=== PATIENT | female | born 1960 | race Caucasian/White ===

== ENCOUNTER 2016-12-14 10:10 | Emergency (ER) | payer MEDICAID ==
[~2016-12-14] VITALS: Ht 170.2 cm; Wt 71.8 kg
[~2016-12-14 10:10] MED LIST: AMIT150T PO; CETI10TA24 PO; PERI COLACE PO; TRAM150C25 PO
[2016-12-14] MEDS ORDERED: GABA300C10 PO (10:29)
[2016-12-14] MEDS ORDERED: AMIT10TA PO (10:29)
[2016-12-14] MEDS ORDERED: TRAM50TA2 PO (10:29)
[2016-12-14] MEDS ORDERED: LIDOCAINE 1%, 20ML SQ ONE (14:00)
[2016-12-14] MEDS ORDERED: LIDOCAINE 1%, 20ML ONE (14:16)
[2016-12-14 14:32] VITALS: BP 140/93
[2016-12-14] MEDS ORDERED: BACITRACIN ZINC OINT 500U/GM, 0.9 GM ONE (14:47)
== END 2016-12-14 15:07 | disposition home or self-care (01) ==
LOC: MERGE 10:10 → EDBD 10:10 → ED 14:57
DX: S01.01XA Laceration without foreign body of scalp, initial encounter (principal); S16.1XXA Strain of muscle, fascia and tendon at neck level, initial encounter; S52.124A Nondisplaced fracture of head of right radius, initial encounter for closed fracture; W01.0XXA Fall on same level from slipping, tripping and stumbling without subsequent striking against object, initial encounter; Y93.89 Activity, other specified; Y92.89 Other specified places as the place of occurrence of the external cause; Y99.8 Other external cause status
CPT/HCPCS: 12001; 29105; 70450; 72125

== ENCOUNTER 2016-12-31 10:26 | Emergency (ER) | payer MEDICAID ==
[~2016-12-31] VITALS: Ht 160 cm; Wt 60.0 kg
[~2016-12-31 10:26] MED LIST changes: +AMIT10TA PO; +GABA300C10 PO; +TRAM50TA2 PO
[2016-12-31] MEDS ORDERED: LORazepam 1MG TABLET ONE (11:24)
[2016-12-31] MEDS ORDERED: ONDANSETRON ODT 4 MG ONE (11:26)
[2016-12-31] MEDS ORDERED: ONDANSETRON ODT 4 MG PO ONE (11:30)
[2016-12-31] MEDS ORDERED: LORazepam 1MG TABLET PO ONE (11:30)
[2016-12-31 12:02] LABS: BLOOD UREA NITROGEN 8 mg/dL (7-18)
[2016-12-31 13:13] VITALS: BP 149/94
== END 2016-12-31 13:15 | disposition home or self-care (01) ==
LOC: ED 13:00
DX: Z00.00 Encounter for general adult medical examination without abnormal findings (principal); F41.1 Generalized anxiety disorder; E11.9 Type 2 diabetes mellitus without complications
CPT/HCPCS: 36415; 80048; 82040; 84443; 85025; 99284; Q0162

== ENCOUNTER 2017-03-29 13:23 | Observation (INO) | payer MEDICAID ==
[~2017-03-29] VITALS: Ht 162.6 cm; Wt 65.0 kg
[2017-03-29] MEDS ORDERED: ONDANSETRON 2MG/ML, 2ML IVPush ONE (14:00)
[2017-03-29] MEDS ORDERED: PLEASE ENTER HEIGHT AND WEIGHT MC SCH (14:00)
[2017-03-29] MEDS ORDERED: MORPHINE SULFATE 4 MG/ML, 1ML IVPush PRN (14:00)
[2017-03-29] MEDS ORDERED: MORPHINE SULFATE 4 MG/ML, 1ML ONE (14:20)
[2017-03-29] MEDS ORDERED: ONDANSETRON 2MG/ML, 2ML ONE (14:20)
[2017-03-29] MEDS ORDERED: AMIT50TA PO (16:55)
[2017-03-29] MEDS ORDERED: TEMA30CA PO (16:55)
[2017-03-29 17:00] LABS: HEMATOCRIT 37.4 % (34.6-47.8); HEMOGLOBIN 12.4 g/dL (11.7-16.4); WHITE BLOOD COUNT 5.2 x10^3/uL (3.4-10)
[2017-03-29 17:08] LABS: BLOOD UREA NITROGEN 4 mg/dL (7-18)
[2017-03-29] MEDS ORDERED: GABA600T2 PO (17:10)
[2017-03-29] MEDS ORDERED: hydrALAzine 20 MG/ML, 1ML IVPush PRN (17:30)
[2017-03-29] MEDS ORDERED: ONDANSETRON ODT 4 MG PO PRN (17:30)
[2017-03-29] MEDS ORDERED: ACETAMINOPHEN 325 MG TABLET PO PRN (17:30)
[2017-03-29] MEDS ORDERED: TRAZODONE 50MG TABLET PO PRN (17:30)
[2017-03-29 18:50] VITALS: BP 108/49
[2017-03-29] MEDS ORDERED: GADOBUTROL 7.5 MMOL/7.5 ML PFS ONE (19:22)
[2017-03-29] MEDS: SODIUM CHLORIDE 0.9% 1,000 ML IV SCH (19:44)
[2017-03-29] MEDS ORDERED: morphine SULFATE 10 MG/ML, 1ML IVPush ONE (20:30)
[2017-03-29] MEDS: LACTULOSE 10 GM/15 ML UDC PO SCH (22:12)
[2017-03-29] MEDS: FAMOTIDINE 20 MG TABLET PO SCH (22:12)
[2017-03-30] MEDS ORDERED: GABAPENTIN 300 MG CAPSULE PO SCH
[2017-03-30] MEDS ORDERED: TEMAZEPAM 30 MG CAPSULE PO PRN
[2017-03-30] MEDS: AMITRIPTYLINE 50 MG TABLET PO SCH ×2 (00:18)
[2017-03-30] MEDS ORDERED: DIPHENHYDRAMINE 50 MG/ML, 1ML ONE (00:26)
[2017-03-30] MEDS ORDERED: AMITRIPTYLINE 50 MG TABLET PO SCH ×2 (00:30→21:00)
[2017-03-30] MEDS ORDERED: DIPHENHYDRAMINE 50 MG/ML, 1ML IVPush PRN (00:30)
[2017-03-30 01:58] VITALS: BP_SYST 104; BP_SYST 117; BP_SYST 96; BP_DIAS 64; BP_DIAS 69; BP_DIAS 71
[2017-03-30 05:03] LABS: BLOOD UREA NITROGEN 5 mg/dL (7-18)
[2017-03-30 05:04] LABS: HEMATOCRIT 33.3 % (34.6-47.8); HEMOGLOBIN 11.1 g/dL (11.7-16.4); WHITE BLOOD COUNT 3.9 x10^3/uL (3.4-10)
[2017-03-30] MEDS: SODIUM CHLORIDE 0.9% 1,000 ML IV SCH (08:26)
[2017-03-30] MEDS: FAMOTIDINE 20 MG TABLET PO SCH (08:26)
[2017-03-30] MEDS: LACTULOSE 10 GM/15 ML UDC PO SCH (08:26)
[2017-03-30 08:45] VITALS: BP_SYST 110; BP_SYST 128; BP_SYST 129; BP_DIAS 72; BP_DIAS 85
[2017-03-30] MEDS ORDERED: SENNA/DOCUSATE TABLET PO SCH (09:00)
[2017-03-30] MEDS ORDERED: POTASSIUM CHLORIDE 20 MEQ TAB.ER.PRT PO ONE (10:30)
[2017-03-30 15:43] VITALS: BP 137/92
== END 2017-03-30 19:00 | disposition home or self-care (01) ==
LOC: ED 16:33 → EDIP 16:34 → ED 17:41 → 3NE 18:10
PROVIDERS: ADMIT Internal Medicine; ATTEND Internal Medicine
DX: F07.81 Postconcussional syndrome (principal); E11.9 Type 2 diabetes mellitus without complications; F41.1 Generalized anxiety disorder; I10 Essential (primary) hypertension
CPT/HCPCS: 36415; 70450; 70553; 72125; 80048; 82140; 84443; 85025; 96361; 96374; 96375; 96376; 97116; 97163; 97166; 97530; 99285; A9585; G0378; J1200; J2270; J2405; J7030

== ENCOUNTER 2017-06-06 23:46 | Emergency (ER) | payer MEDICAID ==
[~2017-06-06] VITALS: Ht 165.1 cm; Wt 56.5 kg
[~2017-06-06 23:46] MED LIST changes: +AMIT50TA PO; +GABA600T2 PO; +TEMA30CA PO
[2017-06-06 23:48] VITALS: BP 126/88
== END 2017-06-07 00:47 | disposition home or self-care (01) ==
LOC: ED 23:59
DX: M25.562 Pain in left knee (principal); M25.561 Pain in right knee; M79.662 Pain in left lower leg; M79.661 Pain in right lower leg; I10 Essential (primary) hypertension; E11.9 Type 2 diabetes mellitus without complications
CPT/HCPCS: 99282

== ENCOUNTER 2017-06-15 04:07 | Inpatient (IN) | payer MEDICAID ==
[~2017-06-15] VITALS: Ht 160 cm; Wt 67.6 kg
[2017-06-15 04:53] LABS: DAU SCREEN DISCLAIMER
[2017-06-15] MEDS ORDERED: SODIUM CHLORIDE 0.9% 1,000ML IVBOLUS ONE (05:00)
[2017-06-15] MEDS ORDERED: SODIUM CHLORIDE FLUSH 10ML SYR IVF ONE (05:00)
[2017-06-15 05:33] LABS: HEMATOCRIT 30.4 % (34.6-47.8); HEMOGLOBIN 10.4 g/dL (11.7-16.4); WHITE BLOOD COUNT 3.3 x10^3/uL (3.4-10)
[2017-06-15 05:38] LABS: ASPARTATE AMINO TRANSFERASE 26 U/L (15-37); BLOOD UREA NITROGEN 6 mg/dL (7-18)
[2017-06-15 05:46] LABS: ACETAMINOPHEN < 2 mcg/mL (10-30)
[2017-06-15] MEDS ORDERED: ONDANSETRON 2MG/ML, 2ML IVPush PRN (07:00)
[2017-06-15] MEDS ORDERED: POTASSIUM CHLORIDE 20 MEQ TAB.ER.PRT PO ONE (07:00)
[2017-06-15] MEDS ORDERED: SODIUM CHLORIDE FLUSH 10ML SYR IVF PRN (07:00)
[2017-06-15] MEDS ORDERED: ONDANSETRON ODT 4 MG PO PRN (07:00)
[2017-06-15 07:57] LABS: FERRITIN 78.9 ng/mL (8-252)
[2017-06-15] MEDS: MULTIVITAMIN 1 TABLET PO SCH (09:00)
[2017-06-15] MEDS: THIAMINE 100MG TABLET PO SCH (09:00)
[2017-06-15 14:00] VITALS: BP 130/79
[2017-06-15 21:05] VITALS: BP 131/88
[2017-06-16 03:20] VITALS: BP 102/67
[2017-06-16 04:51] LABS: HEMATOCRIT 29.5 % (34.6-47.8); HEMOGLOBIN 9.7 g/dL (11.7-16.4); WHITE BLOOD COUNT 2.9 x10^3/uL (3.4-10)
[2017-06-16 05:19] LABS: BLOOD UREA NITROGEN 5 mg/dL (7-18)
[2017-06-16 05:20] LABS: ASPARTATE AMINO TRANSFERASE 19 U/L (15-37)
[2017-06-16 08:23] VITALS: BP 114/73
[2017-06-16] MEDS: THIAMINE 100MG TABLET PO SCH (09:23)
[2017-06-16] MEDS: ACETAMINOPHEN 325 MG TABLET PO PRN ×2 (09:23→21:29)
[2017-06-16] MEDS: MULTIVITAMIN 1 TABLET PO SCH (09:23)
[2017-06-16] MEDS ORDERED: CYANOCOBALAMIN 1,000 MCG/ML, 1ML IM ONE (10:30)
[2017-06-16 14:36] VITALS: BP 109/69
[2017-06-16 20:10] VITALS: BP 116/74
[2017-06-17] VITALS (11 sets, daily range): BP systolic 114–147; BP diastolic 57–92
[2017-06-17] MEDS: MULTIVITAMIN 1 TABLET PO SCH (08:08)
[2017-06-17] MEDS: ACETAMINOPHEN 325 MG TABLET PO PRN ×3 (08:08→19:35)
[2017-06-17] MEDS: THIAMINE 100MG TABLET PO SCH (08:08)
[2017-06-18 03:40] VITALS: BP 106/68
[2017-06-18 07:20] VITALS: BP 103/68
[2017-06-18] MEDS: MULTIVITAMIN 1 TABLET PO SCH (08:23)
[2017-06-18] MEDS: THIAMINE 100MG TABLET PO SCH (08:23)
== END 2017-06-18 10:34 | disposition home or self-care (01) | DRG 948 ==
LOC: ED 04:13 → EDIP 06:39 → 4WST 08:13
PROVIDERS: ADMIT Hospitalist; ATTEND Hospitalist
PROC: 0HQ0XZZ Repair Scalp Skin, External Approach (ICD-10-PCS; principal; 2017-06-15)
DX: R41.82 Altered mental status, unspecified (principal); D64.9 Anemia, unspecified; D72.819 Decreased white blood cell count, unspecified; E11.9 Type 2 diabetes mellitus without complications; E87.6 Hypokalemia; W18.30XA Fall on same level, unspecified, initial encounter; F51.04 Psychophysiologic insomnia; G89.4 Chronic pain syndrome; I10 Essential (primary) hypertension; S01.01XA Laceration without foreign body of scalp, initial encounter; Z79.899 Other long term (current) drug therapy; F32.9 Major depressive disorder, single episode, unspecified; F41.9 Anxiety disorder, unspecified; Z88.8 Allergy status to other drugs, medicaments and biological substances; T42.4X5A Adverse effect of benzodiazepines, initial encounter; Y92.89 Other specified places as the place of occurrence of the external cause; Z59.0 Homelessness
CPT/HCPCS: 36415; 70450; 80053; 80307; 80329; 81003; 82140; 82607; 82728; 82746; 83540; 83550; 84443; 85025; 99285; G0479; G0480; J7030

== ENCOUNTER 2017-07-03 00:25 | Emergency (ER) | payer MEDICAID ==
[~2017-07-03] VITALS: Ht 162.6 cm; Wt 57.3 kg
[2017-07-03 01:18] LABS: MEAN CORPUSCULAR HEMOGLOBIN 29.1 pg (27.0-34.8); MEAN CORPUSCULAR HGB CONC 32.8 g/dL (32.4-35.8); MEAN CORPUSCULAR VOLUME 88.7 fL (80-100); MEAN PLATELET VOLUME 7.6 fL (7.4-10.4); PLATELET COUNT 384 x10^3/uL (130-400); RED BLOOD COUNT 3.41 x10^6/uL (3.82-5.3); RED CELL DISTRIBUTION WIDTH 14.2 % (9.6-15.2)
[2017-07-03 01:29] LABS: ALBUMIN 3.1 g/dL (3.4-5.0); ANION GAP 5 mmol/L (5-15); CALCIUM 8.9 mg/dL (8.5-10.1); CHLORIDE 106 mmol/L (98-107); CREATININE 0.58 mg/dL (0.55-1.02)
[2017-07-03 01:34] LABS: MD YES
[2017-07-03 01:37] LABS: BAND#(MANUAL) 0.37 x10^3/uL; BANDS%(MANUAL) 6 % (0-7); BASOS#(MANUAL) 0.06 x10^3/uL (0-0.1); BASOS% (MANUAL) 1 % (0-1); EOS#(MANUAL) 0.24 x10^3/uL (0.0-0.4); EOS% (MANUAL) 4 % (1-7); LYMPH#(MANUAL) 1.71 x10^3/uL (1-3.4); LYMPHS% (MANUAL) 28 % (22-44); MONOS#(MANUAL) 0.31 x10^3/uL (0.3-2.7); MONOS% (MANUAL) 5 % (2-9); SEG#(MANUAL) 3.42 x10^3/uL (1.8-6.8); SEGS% (MANUAL) 56 % (42-75)
[2017-07-03 01:38] LABS: <PLATELET ESTIMATE> ADEQUATE; <PLT MORPHOLOGY> NORMAL PLT MORPH; ANISOCYTOSIS 1+
[2017-07-03 01:54] VITALS: BP 115/74
== END 2017-07-03 02:14 | disposition home or self-care (01) ==
LOC: ED 02:00
DX: R42 Dizziness and giddiness (principal); E11.9 Type 2 diabetes mellitus without complications; F41.9 Anxiety disorder, unspecified; M19.90 Unspecified osteoarthritis, unspecified site
CPT/HCPCS: 36415; 80048; 82040; 85025; 93005; 99285

== ENCOUNTER 2018-09-04 11:22 | Emergency (ER) | payer MEDICAID ==
[~2018-09-04] VITALS: Ht 162.6 cm; Wt 50.0 kg
[~2018-09-04 11:22] MED LIST changes: -GABA600T2 PO; +GABA600T7 PO
[2018-09-04 12:03] VITALS: BP 110/75
--- NOTE | 2018-09-04 12:39 | NUR ---
TO THE BS AT THIS TIME
--- NOTE | 2018-09-04 13:06 | NUR ---
PT DENIES SI AT THIS TIME TO THE ERP NO SI OR SA PER ERP
[2018-09-04] MEDS ORDERED: DIPH,PERTUSS(ACELL),TET VAC/PF 0.5 ML IM-VACC ONE ×2 (13:10→13:30)
[2018-09-04 13:58] LABS: BASOPHILS # (AUTO) 0.05 x10^3/uL (0-0.1); BASOPHILS % (AUTO) 1 % (0-1); EOSINOPHILS # (AUTO) 0.17 x10^3/uL (0-0.4); EOSINOPHILS % (AUTO) 2 % (1-7); LYMPHOCYTES # (AUTO) 0.69 x10^3/uL (1-3.4); LYMPHOCYTES % (AUTO) 9 % (22-44); MD NO; MEAN CORPUSCULAR HEMOGLOBIN 29.7 pg (27.0-34.8); MEAN CORPUSCULAR HGB CONC 33.5 g/dL (32.4-35.8); MEAN CORPUSCULAR VOLUME 88.6 fL (80-100); MEAN PLATELET VOLUME 7.9 fL (7.4-10.4); MONOCYTES # (AUTO) 0.28 x10^3/uL (0.2-0.8); MONOCYTES % (AUTO) 4 % (2-9); NEUTROPHILS # (AUTO) 6.23 x10^3/uL (1.8-6.8); NEUTROPHILS % (AUTO) 84 % (42-75); PLATELET COUNT 266 x10^3/uL (130-400); RED BLOOD COUNT 3.99 x10^6/uL (3.82-5.3); RED CELL DISTRIBUTION WIDTH 14.8 % (9.6-15.2)
[2018-09-04 14:10] LABS: ALBUMIN 3.7 g/dL (3.4-5.0); ANION GAP 6 mmol/L (5-15); CALCIUM 8.5 mg/dL (8.5-10.1); CHLORIDE 112 mmol/L (98-107)
[2018-09-04] MEDS ORDERED: BACITRACIN ZINC OINT 500U/GM, 0.9 GM ONE (14:10)
[2018-09-04 14:13] LABS: CREATININE 0.85 mg/dL (0.55-1.02)
[2018-09-04 14:14] LABS: SALICYLATE LEVEL < 1.7 mg/dL (2.8-20.0)
[2018-09-04 14:15] LABS: ACETAMINOPHEN < 2 mcg/mL (10-30)
== END 2018-09-04 14:30 | disposition home or self-care (01) ==
LOC: ED 13:37
DX: S00.31XA Abrasion of nose, initial encounter (principal); S00.511A Abrasion of lip, initial encounter; F33.0 Major depressive disorder, recurrent, mild; E11.9 Type 2 diabetes mellitus without complications; F41.1 Generalized anxiety disorder; B86 Scabies; W01.0XXA Fall on same level from slipping, tripping and stumbling without subsequent striking against object, initial encounter; Y93.89 Activity, other specified; Y92.89 Other specified places as the place of occurrence of the external cause; Y99.8 Other external cause status
CPT/HCPCS: 36415; 80048; 80307; 80329; 82040; 85025; 90471; 90715; 99283; G0480

== ENCOUNTER 2018-09-11 12:17 | Observation (INO) | payer MEDICAID ==
[~2018-09-11] VITALS: Ht 160 cm; Wt 54.6 kg
[2018-09-11] MEDS ORDERED: ACETAMINOPHEN 325 MG TABLET PO ONE (13:30)
[2018-09-11 13:57] LABS: BASOPHILS % (AUTO) 0 % (0-1); EOSINOPHILS % (AUTO) 2 % (1-7); LYMPHOCYTES # (AUTO) 0.43 x10^3/uL (1-3.4); LYMPHOCYTES % (AUTO) 5 % (22-44); MD NO; MEAN CORPUSCULAR VOLUME 88.2 fL (80-100); MEAN PLATELET VOLUME 8.5 fL (7.4-10.4); MONOCYTES # (AUTO) 0.38 x10^3/uL (0.2-0.8); MONOCYTES % (AUTO) 4 % (2-9); NEUTROPHILS # (AUTO) 7.94 x10^3/uL (1.8-6.8); NEUTROPHILS % (AUTO) 89 % (42-75); PLATELET COUNT 246 x10^3/uL (130-400); RED BLOOD COUNT 4.15 x10^6/uL (3.82-5.3); RED CELL DISTRIBUTION WIDTH 15.3 % (9.6-15.2)
[2018-09-11 14:08] LABS: CHLORIDE 103 mmol/L (98-107)
[2018-09-11 14:19] LABS: ALANINE AMINOTRANSFERASE 34 U/L (12-78); ALBUMIN 3.9 g/dL (3.4-5.0); ALKALINE PHOSPHATASE 89 U/L (45-117); ANION GAP 5 mmol/L (5-15); BILIRUBIN,TOTAL 0.8 mg/dL (0.2-1.0); CALCIUM 9.1 mg/dL (8.5-10.1); CREATININE 0.65 mg/dL (0.55-1.02); TOTAL PROTEIN 7.8 g/dL (6.4-8.2)
--- NOTE | 2018-09-11 16:10 | NUR ---
chargeback analyst: pt to ed room 29 from lobby in nad at this time
--- NOTE | 2018-09-11 16:25 | NUR ---
CM RAYO AT BEDSIDE
--- NOTE | 2018-09-11 16:39 | NUR ---
PT PRESENTS TO ED WITH C/O NECK PAIN AND RIGHT ELBOW PAIN X 1 WEEK SINCE FALL. PT ALSO NOTES N/V STARTING 4 DAYS AGO. PT INSTRUCTED TO PROVIDE CLEAN CATCH UA, PT STATES SHE HAS NO URGE TO VOID, REFUSES TO ATTEMPT AT THIS TIME. PT IS A&O, RESPS EVEN AND UNLABORED, BP AND SPO2 MONITORS IN PLACE .AWAITING CT, UA AND DISPO.
[2018-09-11] MEDS ORDERED: KETOROLAC 30 MG/1 ML ONE (16:46)
[2018-09-11] MEDS ORDERED: ONDANSETRON ODT 4 MG ONE (16:46)
[2018-09-11] MEDS ORDERED: ACETAMINOPHEN 325 MG TABLET ONE (16:46)
--- NOTE | 2018-09-11 16:55 | NUR ---
PT MEDICATED PER EMAR, TOLERATED WELL. PT GIVEN SODA WITH EDMD'S OK. EDWY GIRMA NOTIFIED PT IS REFUSING TO VOID AT THIS TIME. PT TO CT.
[2018-09-11] MEDS ORDERED: KETOROLAC 30 MG/1 ML IM ONE (17:00)
[2018-09-11] MEDS ORDERED: ONDANSETRON ODT 4 MG PO ONE (17:00)
--- NOTE | 2018-09-11 17:18 | NUR ---
PT BACK FROM CT, PT A&O, RESPS EVEN AND UNLABORED. PT STILL REFUSING TO ATTEMPT TO VOID AT THIS TIME. ALL MONITORS IN PLACE, PT SINUS TACH RATE 110'S WITH NO ECTOPY. CALL LIGHT IN REACH.
--- NOTE | 2018-09-11 17:30 | NUR ---
CM RAYO NOTIFIED PT STILL REFUSING TO PROVIDE UA, NOTIFIED PT IS TACHCARDIC AT RATE 110'S.
--- NOTE | 2018-09-11 18:35 | NUR ---
report given to lunch LEFTY Mccann.
--- NOTE | 2018-09-11 19:06 | NUR ---
FLOAT RN COVERING MEAL BREAK. ATTEMPT TO DISCHARGE PT. PT STATES SHE'S TOO DIZZY AND FEELS LIKE SHE IS GOING TO FALL. ATTEMPT AMBULATION WITH SBA, PT UNSTEADY ON FEET. PT DENIES DRUG OR ALCOHOL USE. PT QUESTIONED ON REASON WHY SO MANY RECENT FALLS, PT UNABLE TO ANSWER QUESTION. ERP NOTIFIED, REQUEST TO BREATHALYZE.
--- NOTE | 2018-09-11 19:15 | NUR ---
REPORT TAKEN FROM LEFTY SCHULZ.
--- NOTE | 2018-09-11 19:30 | NUR ---
late entry for 1930: CM aware pt still has not produced urine sample, MD thomas'yue RN to dc pt without urine sample.
--- NOTE | 2018-09-11 20:50 | NUR ---
this RN discussed pt's unsteady gait with CM Espinal, breathalyzer ordered. pt was unable to provide breath strong enough to provide any reading on breathalyzer. CM Espinal notified. instructed RN to provide pt with cab voucher to [facility]. This RN attempted to ambulate pt, pt was very unsteady and is not able to ambulate safely without assistance, pt states "I'm so dizzy." CM Espinal notified, propellant charge loader notified. pt unable to use walker d/t fractured rt arm, cane does not provide adequate support to pt. admit orders received as pt is not safe for discharge. pt is in bed, monitors in place. hospitalist at bedside to admit pt.
[2018-09-11] MEDS ORDERED: SODIUM CHLORIDE FLUSH 10ML SYR IVF PRN (21:00)
--- NOTE | 2018-09-11 21:00 | NUR ---
pt provided with 3rd sprite, pt tolerating PO fluids with no n/v.
[2018-09-11] MEDS ORDERED: COMPAZINE (21:03)
[2018-09-11] MEDS ORDERED: TRAM50TA2 PO (21:03)
[2018-09-11] MEDS ORDERED: AMIT100T PO (21:03)
--- NOTE | 2018-09-11 21:14 | NUR ---
This RN informed hospitalist Leslie SALDAÑA that pt has not provided urine sample during this ED visit, and has been tachcardic rate 90s-110s. IVF requested. awaiting orders at this time.
--- NOTE | 2018-09-11 21:25 | NUR ---
report given to receiving LEFTY Singer. Pt awaiting transport to room [facility] at this time. Addendum: 09/11/18 at 2128 by EMILY report given to receiving LEFTY Singer. receiving RN notified pt has not voided and urine sample is still needed. Pt awaiting transport to room 348 at this time.
[2018-09-11 21:51] VITALS: BP 110/73
[2018-09-11] MEDS ORDERED: METOCLOPRAMIDE 5 MG/ML, 2ML IVPush PRN (22:00)
[2018-09-11] MEDS ORDERED: hydrALAzine 20 MG/ML, 1ML IVPush PRN (22:00)
[2018-09-11 23:48] VITALS: BP 102/67
[2018-09-12] MEDS ORDERED: AMITRIPTYLINE 50 MG TABLET ONE ×2 (00:52→20:59)
[2018-09-12] MEDS ORDERED: AMITRIPTYLINE 100 MG TABLET PO ONE (01:00)
[2018-09-12 01:22] VITALS: BP 111/73
[2018-09-12 05:48] LABS: ALANINE AMINOTRANSFERASE 25 U/L (12-78); ALBUMIN 2.9 g/dL (3.4-5.0); ANION GAP 3 mmol/L (5-15); CALCIUM 8.1 mg/dL (8.5-10.1); CHLORIDE 104 mmol/L (98-107); CREATININE 0.66 mg/dL (0.55-1.02)
[2018-09-12 05:50] LABS: ALKALINE PHOSPHATASE 68 U/L (45-117); BILIRUBIN,TOTAL 0.9 mg/dL (0.2-1.0)
[2018-09-12 06:05] LABS: MEAN CORPUSCULAR HEMOGLOBIN 29.2 pg (27.0-34.8); MEAN CORPUSCULAR HGB CONC 33.4 g/dL (32.4-35.8); MEAN CORPUSCULAR VOLUME 87.5 fL (80-100); MEAN PLATELET VOLUME 8.4 fL (7.4-10.4); PLATELET COUNT 190 x10^3/uL (130-400); RED BLOOD COUNT 3.44 x10^6/uL (3.82-5.3); RED CELL DISTRIBUTION WIDTH 15.2 % (9.6-15.2)
[2018-09-12 06:52] VITALS: BP 114/78
[2018-09-12 07:48] LABS: BASOPHILS # (AUTO) 0.01 x10^3/uL (0-0.1); BASOPHILS % (AUTO) 0 % (0-1); EOSINOPHILS # (AUTO) 0.34 x10^3/uL (0-0.4); EOSINOPHILS % (AUTO) 10 % (1-7); LYMPHOCYTES # (AUTO) 0.41 x10^3/uL (1-3.4); LYMPHOCYTES % (AUTO) 12 % (22-44); MD SCAN; MONOCYTES # (AUTO) 0.32 x10^3/uL (0.2-0.8); MONOCYTES % (AUTO) 9 % (2-9); NEUTROPHILS # (AUTO) 2.31 x10^3/uL (1.8-6.8); NEUTROPHILS % (AUTO) 68 % (42-75)
[2018-09-12] MEDS: ENOXAPARIN 40 MG/0.4 ML SQ SCH (10:57)
[2018-09-12] MEDS: POLYETHYLENE GLYCOL 17 GM PACKET PO PRN (11:00)
[2018-09-12] MEDS ORDERED: PERMETHRIN CRM 5%, 60GM TP ONE (11:00)
[2018-09-12 11:04] LABS: MICROSCOPIC NOT IND
[2018-09-12 11:07] LABS: CULTURE INDICATED? NO
[2018-09-12 11:19] LABS: AMPHETAMINE SCREEN, URINE Negative (Negative); BARBITURATE SCREEN, URINE Negative (Negative); BENZODIAZEPINE SCREEN, URINE Negative (Negative); CANNABINOID SCREEN, URINE Negative (Negative); COCAINE SCREEN, URINE Negative (Negative); METHADONE SCREEN, URINE Negative (Negative); OPIATE SCREEN, URINE Negative (Negative)
[2018-09-12 12:43] VITALS: BP 118/78
[2018-09-12 19:38] VITALS: BP 101/66
[2018-09-12 19:48] VITALS: BP_SYST 108; BP_SYST 113; BP_DIAS 66; BP_DIAS 72
[2018-09-12] MEDS: AMITRIPTYLINE 100 MG TABLET PO SCH (21:00)
[2018-09-12] MEDS ORDERED: DIPHENHYDRAMINE 25 MG CAPSULE PO ONE (21:00)
[2018-09-13] VITALS (21 sets, daily range): BP systolic 99–149; BP diastolic 50–88
[2018-09-13 05:27] LABS: BASOPHILS # (AUTO) 0.02 x10^3/uL (0-0.1); BASOPHILS % (AUTO) 1 % (0-1); EOSINOPHILS # (AUTO) 0.38 x10^3/uL (0-0.4); EOSINOPHILS % (AUTO) 10 % (1-7); LYMPHOCYTES # (AUTO) 0.89 x10^3/uL (1-3.4); LYMPHOCYTES % (AUTO) 23 % (22-44); MD NO; MEAN CORPUSCULAR HEMOGLOBIN 28.9 pg (27.0-34.8); MEAN CORPUSCULAR HGB CONC 32.8 g/dL (32.4-35.8); MEAN CORPUSCULAR VOLUME 88.1 fL (80-100); MEAN PLATELET VOLUME 8.2 fL (7.4-10.4); MONOCYTES # (AUTO) 0.62 x10^3/uL (0.2-0.8); MONOCYTES % (AUTO) 16 % (2-9); NEUTROPHILS # (AUTO) 1.93 x10^3/uL (1.8-6.8); NEUTROPHILS % (AUTO) 50 % (42-75); PLATELET COUNT 187 x10^3/uL (130-400); RED BLOOD COUNT 3.68 x10^6/uL (3.82-5.3); RED CELL DISTRIBUTION WIDTH 15.1 % (9.6-15.2)
[2018-09-13 05:41] LABS: ANION GAP 4 mmol/L (5-15); CALCIUM 8.2 mg/dL (8.5-10.1); CHLORIDE 106 mmol/L (98-107)
[2018-09-13 05:44] LABS: CREATININE 0.57 mg/dL (0.55-1.02)
[2018-09-13] MEDS: ENOXAPARIN 40 MG/0.4 ML SQ SCH (10:00)
[2018-09-13] MEDS: POLYETHYLENE GLYCOL 17 GM PACKET PO PRN (10:00)
[2018-09-13] MEDS: ACETAMINOPHEN 325 MG TABLET PO PRN ×2 (11:27→21:14)
[2018-09-13] MEDS: MIDODRINE 2.5 MG TABLET PO SCH ×2 (12:20→21:14)
[2018-09-13] MEDS ORDERED: AMITRIPTYLINE 50 MG TABLET ONE (20:51)
[2018-09-13] MEDS ORDERED: DIPHENHYDRAMINE 25 MG CAPSULE PO PRN (21:00)
[2018-09-14] MEDS: AMITRIPTYLINE 100 MG TABLET PO SCH (00:37)
[2018-09-14 00:57] VITALS: BP 110/56
[2018-09-14 05:14] LABS: BASOPHILS # (AUTO) 0.02 x10^3/uL (0-0.1); BASOPHILS % (AUTO) 0 % (0-1); EOSINOPHILS # (AUTO) 0.38 x10^3/uL (0-0.4); EOSINOPHILS % (AUTO) 9 % (1-7); LYMPHOCYTES # (AUTO) 1.14 x10^3/uL (1-3.4); LYMPHOCYTES % (AUTO) 28 % (22-44); MD NO; MEAN CORPUSCULAR HEMOGLOBIN 29.8 pg (27.0-34.8); MEAN CORPUSCULAR HGB CONC 33.9 g/dL (32.4-35.8); MEAN CORPUSCULAR VOLUME 87.7 fL (80-100); MONOCYTES # (AUTO) 0.64 x10^3/uL (0.2-0.8); MONOCYTES % (AUTO) 16 % (2-9); NEUTROPHILS # (AUTO) 1.95 x10^3/uL (1.8-6.8); NEUTROPHILS % (AUTO) 47 % (42-75); PLATELET COUNT 212 x10^3/uL (130-400); RED BLOOD COUNT 3.79 x10^6/uL (3.82-5.3); RED CELL DISTRIBUTION WIDTH 14.5 % (9.6-15.2)
[2018-09-14 05:25] LABS: CHLORIDE 105 mmol/L (98-107)
[2018-09-14 05:31] LABS: ANION GAP 5 mmol/L (5-15); CALCIUM 8.7 mg/dL (8.5-10.1); CREATININE 0.71 mg/dL (0.55-1.02)
[2018-09-14] MEDS: ENOXAPARIN 40 MG/0.4 ML SQ SCH (09:00)
[2018-09-14 09:38] VITALS: BP_SYST 110; BP_SYST 114; BP_SYST 130; BP_DIAS 56; BP_DIAS 80; BP_DIAS 82
[2018-09-14] MEDS: MIDODRINE 2.5 MG TABLET PO SCH (09:52)
[2018-09-14 14:49] VITALS: BP_SYST 127; BP_SYST 99; BP_DIAS 65; BP_DIAS 75
[2018-09-14] MEDS ORDERED: MIDO2.5T PO (15:02)
[2018-09-14] MEDS: POLYETHYLENE GLYCOL 17 GM PACKET PO PRN (17:58)
== END 2018-09-14 18:08 | disposition home or self-care (01) ==
LOC: ED 19:39 → INTOOBSV 20:48 → EDIP 20:48 → 3NW 21:55 → 4EST 23:46
PROVIDERS: ADMIT Family Medicine; ATTEND Family Medicine
DX: R42 Dizziness and giddiness (principal); F32.9 Major depressive disorder, single episode, unspecified; M19.90 Unspecified osteoarthritis, unspecified site; F41.9 Anxiety disorder, unspecified; E11.9 Type 2 diabetes mellitus without complications; K59.00 Constipation, unspecified; R29.6 Repeated falls; Z86.73 Personal history of transient ischemic attack (TIA), and cerebral infarction without residual deficits; Z91.81 History of falling; Z98.1 Arthrodesis status
CPT/HCPCS: 36415; 70450; 72050; 73080; 74018; 80048; 80053; 80307; 81003; 83735; 85025; 93005; 93306; 96372; 97162; 97164; 97165; 97535; 99284; G0378; J1650; J1885; Q0162; Q0163

== ENCOUNTER 2018-10-08 19:07 | Emergency (ER) | payer MEDICAID ==
[~2018-10-08] VITALS: Ht 160 cm; Wt 53.0 kg
[~2018-10-08 19:07] MED LIST changes: +AMIT100T PO; +COMPAZINE; +MIDO2.5T PO
[2018-10-08 19:18] VITALS: BP 123/83
[2018-10-08] MEDS ORDERED: KETOROLAC 30 MG/1 ML ONE (20:32)
[2018-10-08] MEDS ORDERED: KETOROLAC 30 MG/1 ML IM ONE (21:00)
== END 2018-10-08 20:55 | disposition home or self-care (01) ==
LOC: ED 20:45
DX: G89.29 Other chronic pain (principal); M54.2 Cervicalgia; M19.90 Unspecified osteoarthritis, unspecified site; E11.9 Type 2 diabetes mellitus without complications
CPT/HCPCS: 72050; 96372; 99283; J1885

== ENCOUNTER 2018-11-08 06:40 | Emergency (ER) | payer MEDICAID ==
[~2018-11-08] VITALS: Ht 170.2 cm; Wt 65.0 kg
[2018-11-08 06:42] VITALS: BP 125/82
--- NOTE | 2018-11-08 07:00 | NUR ---
ASSUMED CARE OF PATIENT. WARM BLANKET PROVIDED. PT IN NO DISTRESS.
--- NOTE | 2018-11-08 07:23 | NUR ---
ULTRASOUND IN PROGRESS. ANOTHER WARM BLANKET PROVIDED.
[2018-11-08 07:28] LABS: BASOPHILS # (AUTO) 0.04 x10^3/uL (0-0.1); BASOPHILS % (AUTO) 1 % (0-1); EOSINOPHILS # (AUTO) 0.19 x10^3/uL (0-0.4); EOSINOPHILS % (AUTO) 5 % (1-7); LYMPHOCYTES % (AUTO) 26 % (22-44); MD NO; MEAN CORPUSCULAR HEMOGLOBIN 29.4 pg (27.0-34.8); MEAN CORPUSCULAR HGB CONC 33.2 g/dL (32.4-35.8); MEAN CORPUSCULAR VOLUME 88.6 fL (80-100); MEAN PLATELET VOLUME 7.8 fL (7.4-10.4); MONOCYTES # (AUTO) 0.39 x10^3/uL (0.2-0.8); MONOCYTES % (AUTO) 10 % (2-9); NEUTROPHILS # (AUTO) 2.19 x10^3/uL (1.8-6.8); NEUTROPHILS % (AUTO) 58 % (42-75); PLATELET COUNT 262 x10^3/uL (130-400); RED BLOOD COUNT 4.15 x10^6/uL (3.82-5.3); RED CELL DISTRIBUTION WIDTH 15.3 % (9.6-15.2)
[2018-11-08 07:40] LABS: ALBUMIN 3.6 g/dL (3.4-5.0); ANION GAP 4 mmol/L (5-15); CALCIUM 9.1 mg/dL (8.5-10.1); CHLORIDE 109 mmol/L (98-107); CREATININE 0.58 mg/dL (0.55-1.02)
[2018-11-08 07:43] LABS: CREATINE KINASE, TOTAL 121 U/L (26-192)
--- NOTE | 2018-11-08 08:15 | NUR ---
Patient given discharge instructions and they have confirmed that they understand the instructions. Patient ambulatory with steady gait.
== END 2018-11-08 08:41 | disposition home or self-care (01) ==
LOC: ED 07:04
DX: M79.662 Pain in left lower leg (principal); F32.9 Major depressive disorder, single episode, unspecified; F41.1 Generalized anxiety disorder; E11.9 Type 2 diabetes mellitus without complications
CPT/HCPCS: 36415; 80048; 82040; 82550; 83735; 85025; 99284

== ENCOUNTER → 2018-11-27 | Outpatient (CLI) | payer MEDICAID | END | disposition home or self-care (01) | LOC: CFH 14:40 | PROVIDERS: ATTEND Family Medicine Adult Medicine | DX: R05 Cough (principal); M41.84 Other forms of scoliosis, thoracic region | CPT/HCPCS: 71046 ==

== ENCOUNTER 2018-12-02 20:58 | Emergency (ER) | payer MEDICAID ==
[~2018-12-02] VITALS: Ht 160 cm; Wt 49.6 kg
--- NOTE | 2018-12-02 21:33 | NUR ---
PT IN RADIOLOGY VIA [facility]
[2018-12-02] MEDS ORDERED: KETOROLAC 30 MG/1 ML IM ONE (22:00)
[2018-12-02] MEDS ORDERED: KETOROLAC 30 MG/1 ML ONE (22:03)
[2018-12-02 22:47] VITALS: BP 120/79
== END 2018-12-02 22:52 | disposition home or self-care (01) ==
LOC: ED 22:15
DX: S16.1XXA Strain of muscle, fascia and tendon at neck level, initial encounter (principal); J06.9 Acute upper respiratory infection, unspecified; X58.XXXA Exposure to other specified factors, initial encounter; Y93.89 Activity, other specified; Y92.89 Other specified places as the place of occurrence of the external cause; Y99.8 Other external cause status
CPT/HCPCS: 71046; 72050; 87081; 87880; 96372; 99284; J1885

== ENCOUNTER 2019-06-05 08:23 | Emergency (ER) | payer MEDICAID ==
[~2019-06-05] VITALS: Ht 160 cm; Wt 49.5 kg
--- NOTE | 2019-06-05 08:25 | NUR ---
COOPER GRACE. PT STATES WALKING UP STAIRS AND GOT TO THE TOP AND FELT DIZZY AND FELL DOWN. WITNESSED BY ROOMMATE. PT STATES SHE NEVER HAD LOC, REMEMBERS THE ENTIRE EVENT. DENIES DIAL, N/V, DIZZINESS AT THIS TIME.
--- NOTE | 2019-06-05 08:44 | NUR ---
pt states "I HAVE TO GO TO THE BATHROOM. I'M NOT USING THE BED SHAFFER." PT EDUCATED REGARDING THE USE OF A BEDPAN BEING SAFER FOR HER D/T THE FACT SHE ARRIVED VIA EMS WITH C/O SYNCOPE THIS MORNING. PT PLACED ON BEDPAN. PT UNABLE TO VOID AT THIS TIME. WILL CONTINUE TO MONITOR. BED SHAFFER REMOVED FROM PT
[2019-06-05 09:16] LABS: MEAN CORPUSCULAR HEMOGLOBIN 30.9 pg (27.0-34.8); MEAN CORPUSCULAR VOLUME 93.6 fL (80-100); MEAN PLATELET VOLUME 7.4 fL (7.4-10.4); PLATELET COUNT 258 x10^3/uL (130-400); RED BLOOD COUNT 3.94 x10^6/uL (3.82-5.3); RED CELL DISTRIBUTION WIDTH 14.5 % (9.6-15.2)
[2019-06-05 09:22] LABS: ALANINE AMINOTRANSFERASE 24 U/L (12-78); ALBUMIN 3.6 g/dL (3.4-5.0); ANION GAP 5 mmol/L (5-15); CALCIUM 8.8 mg/dL (8.5-10.1); CHLORIDE 108 mmol/L (98-107)
[2019-06-05 09:27] LABS: ALKALINE PHOSPHATASE 68 U/L (45-117); BILIRUBIN,TOTAL 0.2 mg/dL (0.2-1.0); CREATININE 0.66 mg/dL (0.55-1.02); TROPONIN I < 0.015 ng/mL (0.000-0.045)
[2019-06-05 09:44] LABS: MD YES
[2019-06-05 09:47] LABS: LYMPH#(MANUAL) 0.99 x10^3/uL (1-3.4); LYMPHS% (MANUAL) 26 % (22-44); MONOS#(MANUAL) 0.38 x10^3/uL (0.3-2.7); MONOS% (MANUAL) 10 % (2-9); SEG#(MANUAL) 1.98 x10^3/uL (1.8-6.8); SEGS% (MANUAL) 52 % (42-75)
[2019-06-05 09:48] LABS: EOS#(MANUAL) 0.46 x10^3/uL (0.0-0.4); EOS% (MANUAL) 12 % (1-7)
[2019-06-05 09:49] LABS: <PLATELET ESTIMATE> ADEQUATE; <PLT MORPHOLOGY> NORMAL PLT MORPH; OVALOCYTES 1+
--- NOTE | 2019-06-05 10:00 | NUR ---
PT ASSIST TO BSC. PT DENIES DIZZINES.
[2019-06-05 10:24] LABS: MICROSCOPIC AUTO
--- NOTE | 2019-06-05 10:32 | NUR ---
pt offered warm blanket. pt refuses at this time.
[2019-06-05 10:36] LABS: CULTURE INDICATED? YES
[2019-06-05 11:43] VITALS: BP 99/69
== END 2019-06-05 11:50 | disposition home or self-care (01) ==
LOC: ED 09:22
DX: F43.0 Acute stress reaction (principal); F41.9 Anxiety disorder, unspecified; R53.1 Weakness; E11.9 Type 2 diabetes mellitus without complications; Z88.5 Allergy status to narcotic agent
CPT/HCPCS: 36415; 80053; 81001; 84484; 85025; 87086; 93005; 99284

== ENCOUNTER 2019-07-15 17:27 | Emergency (ER) | payer MEDICAID ==
[~2019-07-15] VITALS: Ht 154.9 cm; Wt 48.7 kg
--- NOTE | 2019-07-15 18:40 | NUR ---
PT RETURNED FROM RADIOLOGY.
[2019-07-15] MEDS ORDERED: KETOROLAC 30 MG/1 ML ONE (19:25)
[2019-07-15] MEDS ORDERED: KETOROLAC 30 MG/1 ML IVPush ONE (19:30)
--- NOTE | 2019-07-15 19:30 | NUR ---
BREAK RN: DR. CASIANO HAD BEEN IN TO DISCUSS DC PLAN WITH PT. PT. MEDICATED PER AUG. VS UPDATED. PT. HAS CALL LIGHT IN REACH, ALL SAFETY MEASURES OBSERVED. TO DC AFTER PAPERS READY.
--- NOTE | 2019-07-15 19:38 | NUR ---
PT REPORT FROM LEFTY SAHA. PT TO BE DISCHARGED.
[2019-07-15 19:48] VITALS: BP 122/55
== END 2019-07-15 19:51 | disposition home or self-care (01) ==
LOC: ED 18:41
DX: R07.89 Other chest pain (principal); E11.9 Type 2 diabetes mellitus without complications; W01.0XXA Fall on same level from slipping, tripping and stumbling without subsequent striking against object, initial encounter; Y93.89 Activity, other specified; Y92.89 Other specified places as the place of occurrence of the external cause; Y99.8 Other external cause status
CPT/HCPCS: 71046; 96374; 99283; J1885

== ENCOUNTER 2020-06-22 14:34 | Outpatient (CLI) | payer MEDICAID ==
[~2020-06-22 14:34] MED LIST changes: -CETI10TA24 PO; +CETI10TA76 PO
== END 2020-06-22 23:59 | disposition home or self-care (01) ==
LOC: CFH 14:34
PROVIDERS: ATTEND Family Medicine Adult Medicine
DX: Z12.31 Encounter for screening mammogram for malignant neoplasm of breast (principal)
CPT/HCPCS: 77063; 77067